=== PATIENT | male | born 1955 | race Caucasian/White ===

== ENCOUNTER 2021-10-28 05:02 | Day surgery (SDC) | payer OTHER ==
[2021-10-27 08:40] VITALS: BMI 23.7
[2021-10-28 09:23] VITALS: TEMP 97.7
[2021-10-28 09:57] VITALS: BP 111/77; PULSE 63
== END 2021-10-28 10:04 | disposition home or self-care (01) ==
LOC: JASU-ENDO 05:02
PROVIDERS: ATTEND Internal Medicine Gastroenterology
PROC: 0DBN8ZX Excision of Sigmoid Colon, Via Natural or Artificial Opening Endoscopic, Diagnostic (ICD-10-PCS; principal; 2021-10-28 09:00)
DX: Z12.11 Encounter for screening for malignant neoplasm of colon (principal); K63.5 Polyp of colon; K64.8 Other hemorrhoids
CPT/HCPCS: 88305-TC